=== PATIENT | male | born 1950 | race Two or more races ===

== ENCOUNTER 2018-01-13 19:35 | Emergency (ER) | payer MEDICARE, MEDICAID ==
--- NOTE | 2018-01-13 19:53 | ED Physician Chart ---
ED Chief Complaint/HPI - Patient Information Date Seen:: 01/13/18 Time Seen:: 19:47 Chief Complaint:: Sore throat and fever History of Present Illness:: 67 yo male had sore throat, fever and chills for 2 days. He had difficulty speaking. Mild cough, no SOB, no trismus. Allergies:: Allergies Allergy/AdvReac Type Severity Reaction Status Date / Time No Known Allergies Allergy Verified 01/13/18 19:45 ED Review of Systems - Review of Systems General/Constitutional: Fever, Chills Skin: No bruising Head: Other (Heavy headed) Eyes: No pain ENT: Sore throat Neck: Neck pain Cardio Vascular: No chest pain Pulmonary: No SOB, Cough GI: Nausea, No vomiting Musculoskeletal: No bone or joint pain Neurological: No focal symptoms ED Past Medical History - Past Medical History Past Medical History: No significant medical hx Social History: Non Smoker, No Alcohol, No Drug Use Surgical History: other (Left total knee replacement) Family Medical History - Family Member Mother History Unknown: Yes ED Physical Exam - Physical Examination General/Constitutional: Awake Head: Atraumatic Eyes: PERRL Skin: No skin lesions ENMT: Nasal exam nl Other ENMT comments:: Oropharyngeal erythema with purulent secretion Neck: No nuchal rigidity Other Neck comments:: Tenderness superior anterior neck Respiratory: Clear to Auscultation Cardio Vascular: RRR, NL S1 S2 GI: No tenderness/rebounding/guarding Extremities: normal strength in all extremities Neuro/Psych: No focal deficits ED Labs/Radiology/EKG Results - Lab Results Results: Laboratory Last Values WBC 14.0 Th/cmm (4.8-10.8) H 01/13/18 20:15 RBC 5.10 Mil/cmm (3.80-5.80) 01/13/18 20:15 Hgb 15.1 gm/dL (12-16) 01/13/18 20:15 Hct 44.1 % (41.0-60) 01/13/18 20:15 MCV 86.6 fl (80-99) 01/13/18 20:15 MCH 29.6 pg (27.0-31.0) 01/13/18 20:15 MCHC Differential 34.2 pg (28.0-36.0) 01/13/18 20:15 RDW 12.5 % (11.5-20.0) 01/13/18 20:15 Plt Count 139 Th/cmm (150-400) L 01/13/18 20:15 MPV 7.9 fl 01/13/18 20:15 Neutrophils % 81.0 % (40.0-80.0) H 01/13/18 20:15 Lymphocytes % 10.7 % (20.0-50.0) L 01/13/18 20:15 Monocytes % 8.1 % (2.0-10.0) 01/13/18 20:15 Eosinophils % 0.2 % (0.0-5.0) 01/13/18 20:15 Basophils % 0.0 % (0.0-2.0) 01/13/18 20:15 Sodium 134 mEq/L (136-145) L 01/13/18 20:15 Potassium 3.7 mEq/L (3.5-5.1) 01/13/18 20:15 Chloride 100 mEq/L (98-107) 01/13/18 20:15 Carbon Dioxide 25.5 mEq/L (21.0-31.0) 01/13/18 20:15 Anion Gap 12.2 (7.0-16.0) 01/13/18 20:15 BUN 23 mg/dL (7-25) 01/13/18 20:15 Creatinine 0.8 mg/dL (0.7-1.3) 01/13/18 20:15 Est GFR ( Amer) > 60.0 ml/min (>90) 01/13/18 20:15 Est GFR (Non-Af Amer) > 60.0 ml/min 01/13/18 20:15 BUN/Creatinine Ratio 28.8 01/13/18 20:15 Glucose 145 mg/dL (70-105) H 01/13/18 20:15 Calcium 8.9 mg/dL (8.6-10.3) 01/13/18 20:15 Total Bilirubin 0.7 mg/dL (0.3-1.0) 01/13/18 20:15 AST 15 U/L (13-39) 01/13/18 20:15 ALT 18 U/L (7-52) 01/13/18 20:15 Alkaline Phosphatase 63 U/L (34-104) 01/13/18 20:15 Total Protein 6.3 gm/dL (6.0-8.3) 01/13/18 20:15 Albumin 3.9 gm/dL (4.2-5.5) L 01/13/18 20:15 Globulin 2.4 gm/dL 01/13/18 20:15 Albumin/Globulin Ratio 1.6 (1.0-1.8) 01/13/18 20:15 Influenza A (Rapid) NEG FOR INF A 01/13/18 20:10 Influenza B (Rapid) NEG FOR INF B 01/13/18 20:10 Comments:: Rapid strep test: positive - Radiology Results Results: CXR: no focal consolidation. Cardiomegaly ED Assessment - Assessment General Assessment: Streptococcal pharyngitis with positive GAS Leukocytosis Hyponatremia Assessment/Comments:: CBC, CMP Rapid strep test Influenza A/B CXR NS 1L IV bolus Rocephin IV D/c home Amoxicillin 500mg bid x 10 days F/u PCP or return to ER if symptoms worsen ED Septic Shock - . Is Septic Shock (SBP<90, OR Lactate>4 mmol\L) present?: No ED Reassessment (Disposition) - Reassessment Reassessment Condition:: Improved - Patient Disposition Discharge/Transfer:: Home ED Discharge Plan - Patient Disposition Admit/Discharge/Transfer: PT DISCHARGED HOME Instructions: Strep Throat Additional Instructions: follow up with your primary medical doctor SUMAN take prescribed medications as ordered
[2018-01-13 20:25] LABS: % EOSINOPHILS 0.2 % (0.0-5.0); % LYMPHOCYTES 10.7 % (20.0-50.0); % MONOCYTES 8.1 % (2.0-10.0); HEMATOCRIT 44.1 % (41.0-60); HEMOGLOBIN 15.1 gm/dL (12-16); LYMPHOCYTE ABSOLUTE 1.5 Th/cmm (1.5-3.0); MEAN CELL VOLUME 86.6 fl (80-99); MEAN CORPUSCULAR HEMOGLOBIN 29.6 pg (27.0-31.0); MEAN CORPUSCULAR HGB CONC 34.2 pg (28.0-36.0); MEAN PLATELET VOLUME 7.9 fl; MONOCYTE ABSOLUTE 1.1 Th/cmm (0.3-1.0); NEUTROPHILE ABSOLUTE 11.4 Th/cmm (1.8-8.0); PLATELET COUNT 139 Th/cmm (150-400); RED CELL DISTRIBUTION WIDTH 12.5 % (11.5-20.0)
[2018-01-13 20:37] LABS: ALB/GLOB RATIO 1.6 (1.0-1.8); ALBUMIN 3.9 gm/dL (4.2-5.5); ALKALINE PHOSPHATASE 63 U/L (34-104); ANION GAP 12.2 (7.0-16.0); BILIRUBIN,TOTAL 0.7 mg/dL (0.3-1.0); BUN - UREA NITROGEN 23 mg/dL (7-25); CALCIUM SERUM 8.9 mg/dL (8.6-10.3); CARBON DIOXIDE 25.5 mEq/L (21.0-31.0); CHLORIDE 100 mEq/L (98-107); CREATININE - SERUM 0.8 mg/dL (0.7-1.3); GFR AFRICAN-AMERICAN > 60.0 ml/min (>90); GFR NON AFRICAN-AMERICAN > 60.0 ml/min; GLUCOSE 145 mg/dL (70-105); POTASSIUM SERUM 3.7 mEq/L (3.5-5.1); SGOT 15 U/L (13-39); SGPT/ALT 18 U/L (7-52); SODIUM SERUM 134 mEq/L (136-145); TOTAL PROTEIN,SERUM 6.3 gm/dL (6.0-8.3)
[2018-01-13 20:41] LABS: INF A SCREEN NEG FOR INF A; INF B SCREEN NEG FOR INF B
[2018-01-13] MEDS ORDERED: Levofloxacin 750mg/150mL 750 MG/150 ML BAG IV ONE (21:05)
[2018-01-13] MEDS ORDERED: Sodium Chloride 0.9% 1,000 ML IV ONE (21:06)
[2018-01-13] MEDS ORDERED: LEVOFLOXACIN IV ONE (21:07)
[2018-01-13] MEDS ORDERED: cefTRIAXone 1 GM in Sodium Chloride 0.9% 50 ML IV ONE (21:17)
--- NOTE | 2018-01-14 10:08 | Diagnostic Imaging Report ---
CHEST X-RAY: AP view INDICATION: Cough COMPARISON: None FINDINGS: Mild increased right basal lung markings are noted. There is elevation of the right hemidiaphragm. No focal consolidation or effusions. Cardiomegaly is noted. Osseous structures are intact. IMPRESSION: No focal consolidation identified Right basal atelectatic changes. Cardiomegaly.
== END 2018-01-13 21:30 | disposition home or self-care (01) ==
LOC: ER 19:35
DX: J02.9 Acute pharyngitis, unspecified (principal); M54.2 Cervicalgia
CPT/HCPCS: 36415-UA; 71045-TC; 80053-TC; 85025-TC; 87081-90; 87804-TC; J0696; J1956; J7030